=== PATIENT | female | born 1950 | race Native Hawaiian/Other Pacific Islander ===

== ENCOUNTER 2017-06-13 08:16 | Outpatient (CLI) | payer OTHER ==
[~2017-06-13 08:16] MED LIST: AMLO5TAB PO; LISI20TA24 PO; METO50TA27 PO; SIMV20TA2 PO; UNITH DIRECT75 MCG PO; UNITHROID88 MCG PO
== END 2017-06-13 09:30 | disposition home or self-care (01) ==
LOC: MAMMO 08:16
DX: Z12.31 Encounter for screening mammogram for malignant neoplasm of breast (principal)

== ENCOUNTER 2018-06-16 08:34 | Outpatient (CLI) | payer OTHER | END 2018-06-16 20:28 | disposition home or self-care (01) | LOC: MAMMO 08:34 | DX: Z12.31 Encounter for screening mammogram for malignant neoplasm of breast (principal) ==

== ENCOUNTER 2018-06-24 08:26 | Outpatient (CLI) | payer OTHER ==
[2018-06-24 09:06] LABS: PLATELET COUNT 311 K/uL (152-353)
[2018-06-24 09:36] LABS: POTASSIUM 3.5 mmol/L (3.6-5.2)
== END 2018-06-24 22:08 | disposition home or self-care (01) ==
LOC: LABW 08:26
PROVIDERS: Specialist
DX: R93.1 Abnormal findings on diagnostic imaging of heart and coronary circulation (principal); Z01.810 Encounter for preprocedural cardiovascular examination
CPT/HCPCS: 36415; 80053; 85027

== ENCOUNTER 2019-06-18 08:54 | Outpatient (CLI) | payer OTHER | END 2019-06-18 19:49 | disposition home or self-care (01) | LOC: MAMMO 08:54 | DX: Z12.31 Encounter for screening mammogram for malignant neoplasm of breast (principal) ==

== ENCOUNTER 2020-09-22 12:35 | Inpatient (IN) | payer OTHER ==
[2020-09-23 07:02] LABS: PLATELET COUNT 388 K/uL (152-353)
[2020-09-23 07:27] LABS: POTASSIUM 3.2 mmol/L (3.6-5.2)
[2020-10-03 06:51] LABS: PLATELET COUNT 359 K/uL (152-353)
[2020-10-03 08:19] LABS: POTASSIUM 2.6 mmol/L (3.6-5.2)
[2020-10-10 07:47] LABS: POTASSIUM 2.9 mmol/L (3.6-5.2)
== END 2020-10-13 08:34 | disposition still patient (30) ==
LOC: PAVA 12:35
PROVIDERS: ADMIT Internal Medicine; ATTEND Internal Medicine
CPT/HCPCS: 80048; 80053; 80061; 82306; 82378; 82607; 82728; 83036; 83540; 83735; 84443; 85027; 87081

== ENCOUNTER 2020-09-29 09:29 | Outpatient (CLI) | payer OTHER | END 2020-09-29 21:48 | disposition home or self-care (01) | LOC: MAMMO 09:29 | PROVIDERS: ATTEND Internal Medicine | DX: Z13.820 Encounter for screening for osteoporosis (principal); N83.291 Other ovarian cyst, right side; N95.8 Other specified menopausal and perimenopausal disorders ==

== ENCOUNTER 2020-10-04 13:16 | Outpatient (CLI) | payer OTHER | END 2020-10-04 21:56 | disposition home or self-care (01) | LOC: INF | PROVIDERS: ATTEND Internal Medicine | DX: Z23 Encounter for immunization (principal) | CPT/HCPCS: 96372 ==